=== PATIENT | female | born 1990 | race Caucasian/White ===

== ENCOUNTER 2018-10-04 07:40 | Day surgery (SDC) | payer OTHER ==
[2018-10-04] VITALS (17 sets, daily range): BP systolic 82–102; BP diastolic 45–59; PULSE 50–63; RESP 12–20; Ht 162.6 cm; Wt 52.9 kg
[~2018-10-04] VITALS: Ht 162.6 cm; Wt 52.9 kg
[2018-10-04] MEDS ORDERED: LACTATED RINGER'S 1,000 ML IV SCH (09:00)
--- NOTE | 2018-10-04 09:30 | HPN ---
Date/Time of Note Date/Time of Note DATE: 10/04/18 TIME: 09:30 Interval H&P Admission Note Pt. seen H&P reviewed: No system changes JEANINE BRYANT MD Oct 04, 2018 09:30
--- NOTE | 2018-10-04 09:54 | PREAC ---
Date/Time of Note Date/Time of Note DATE: 10/04/18 TIME: 09:53 Anesthesia Eval and Record Evaluation Time Pre-Procedure Interview DATE: 10/04/18 TIME: 09:53 Age 28 Sex female NPO: 8 hrs Preoperative diagnosis Molluscum Contagiosum Planned procedure Electrocautherization of Vulvar Lesion Past Medical History Past Medical History: Includes Heme: Anemia Surgery & Anesthesia Issues No known issue Meds Anticoagulation: No Beta Inga within 24 hr: No Reason Beta Inga not given: Pt. not on B-Inga No Active Prescriptions or Reported Meds Current Medications Lactated Ringer's 1,000 ml @ 25 mls/hr Q24H IV ; Start 10/04/18 at 09:00 Meds reviewed: Yes Allergies Coded Allergies: No Known Allergy (Unverified , 10/04/18) Allergies Reviewed: Yes Labs/Studies Labs Reviewed: Reviewed by anesthesiologist Result Diagram: 10/04/18 0821 Laboratory Tests 10/04/18 08:21 test: Negative Studies: ECG (n/a), CXR (n/a) Pre-procedure Exam Last vitals Vital Signs Date Temp Pulse Resp B/P (MAP) Pulse Ox O2 O2 Flow FiO2 Time Delivery Rate 10/04/18 98.0 61 16 100/59 100 Room Air 08:40 (73) Airway: Adequate mouth opening, Adequate thyromental dist Mallampati: Mallampati II Teeth: Normal Lung: Normal Heart: Normal ASA Physical Status ASA physical status: 2 Emergency: None Planned Anesthetic General/MAC: LMA Planned Pain Management Parenteral pain med Pre-operative Attestations Prior to commencing anesthesia and surgery, the patient was re-evaluated, there was verification of: *The patient's identity *The results of appropriate recent lab work and preoperative vital signs *The above evaluation not changing prior to induction *Anesthetic plan, risk benefits, alternative and complications discussed with patient/family; questions answered; patient/family understands, accepts and wishes to proceed. KRYSTA FITCH MD Oct 04, 2018 09:54
[2018-10-04] MEDS ORDERED: HYDROmorphONE 1 MG/5 ML IV SYRINGE IV PRN ×2 (10:00)
[2018-10-04] MEDS ORDERED: LABETALOL HCL 20MG INJ IV PRN (10:00)
[2018-10-04] MEDS ORDERED: EPHEDrine 25 MG/5 ML SYG IV PRN (10:00)
[2018-10-04] MEDS ORDERED: ONDANSETRON 4 MG INJ IV PRN (10:00)
[2018-10-04] MEDS ORDERED: FENTAnyl 50 MCG/ML VIAL IV PRN ×2 (10:00)
[2018-10-04] MEDS ORDERED: METOCLOPRAMIDE 10 MG INJ IV PRN (10:00)
[2018-10-04] MEDS ORDERED: OXYCODONE/ACETAMINOPHEN (5/325) TAB PO PRN (10:00)
[2018-10-04] MEDS ORDERED: PROPOFOL 20 ML ONE (10:04)
[2018-10-04] MEDS ORDERED: FENTAnyl 50 MCG/ML VIAL ONE (10:04)
[2018-10-04] MEDS ORDERED: CEFAZOLIN 1 GM INJ ONE (10:04)
[2018-10-04] MEDS ORDERED: MIDAZOLAM 1 MG/ML 2 ML INJ ONE (10:04)
--- NOTE | 2018-10-04 10:45 | SIPON ---
Date/Time of Note Date/Time of Note DATE: 10/04/18 TIME: 10:42 Operative Report Preoperative Diagnosis mollusum contagiosum on vulva Postoperative Diagnosis same as above Operation/Procedure Performed electric dessication of multiple molluscum contageosum x23 Surgeon see signature line customer marketing assistant [place] Anesthesia: general Estimated blood loss: none Transfusion Required none Specimen none Grafts/Implants none Complications none JEANINE BRYANT MD Oct 04, 2018 10:45
--- NOTE | 2018-10-04 10:47 | PD.PPDC ---
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
[2018-10-04] MEDS ORDERED: ONDANSETRON 4 MG INJ ONE (10:50)
[2018-10-04] MEDS ORDERED: METOCLOPRAMIDE 10 MG INJ ONE (10:50)
[2018-10-04] MEDS ORDERED: DEXAMETHASONE 4 MG/ML 5 ML INJ ONE (10:50)
--- NOTE | 2018-10-04 10:58 | PAC ---
Date/Time of Note Date/Time of Note DATE: 10/04/18 TIME: 10:58 Post-Anesthesia Notes Post-Anesthesia Note Last documented vital signs Vital Signs Date Temp Pulse Resp B/P (MAP) Pulse Ox O2 O2 Flow FiO2 Time Delivery Rate 10/04/18 98.3 61 16 100/59 100 Room Air 11:00 (73) Activity: WNL Respiratory function: WNL Cardiovascular function: WNL Mental status: Baseline Pain reasonably controlled: Yes Hydration appropriate: Yes Nausea/Vomiting absent: Yes KRYSTA FITCH MD Oct 04, 2018 10:58
--- NOTE | 2018-10-04 13:25 | OPR ---
DATE OF OPERATION: 10/04/2018 PREOPERATIVE DIAGNOSIS: Multiple electric desiccation of vulvar lesions, 23 spots. POSTOPERATIVE DIAGNOSIS: Multiple electric desiccation of vulvar lesions, 23 spots. Molluscum contagiosum. PROCEDURE: Electric desiccation of vulvar lesions, 23 spots. ANESTHESIA: General. ANESTHESIOLOGIST: ____. SURGEON: Kami Byers MD LENS COATING TECHNICIAN: automatic equipment technician. PROCEDURE: Under proper induction of general anesthesia, the patient was placed in dorsal lithotomy position. Perineal area was painted with Betadine and the electric desiccation done on the multiple vulvar perineal inner thigh, approximately 23 lesion, were desiccated by using electrocauterization w ith a needlepoint. Procedure was done and the patient was sent to recovery in stable condition. The re was no bleeding noted. Xeroform gauze was applied on the lesions with a mesh panties ordered. Dictated By: KAMI NEGRO/CANDELARIA Conf#: [id number] DID#: [id number]
== END 2018-10-04 12:49 | disposition home or self-care (01) ==
LOC: SDS 07:40
PROVIDERS: ATTEND Obstetrics & Gynecology
DX: B08.1 Molluscum contagiosum (principal)
CPT/HCPCS: 56515; 85025; J0690; J1100; J2250; J2405; J2765; J3010